=== PATIENT | female | born 1945 | race Caucasian/White ===

== ENCOUNTER → 2016-11-20 | Outpatient (CLI) | payer OTHER ==
[~2016-11-20] MED LIST: AMOX875T PO; ATOR-24 PO; HYDR12.56 PO; LEVO175T PO; LOSA1TAB38 PO; OXYC1TAB3 PO; PHN/100 PO
--- NOTE | 2016-11-20 13:52 | MAMMOGRAPHY REPORT ---
BILATERAL DIGITAL SCREENING MAMMOGRAM WITH CAD: 11/20/2016 CLINICAL HISTORY: Routine screening. Patient has no complaints. TECHNIQUE: Current study was also evaluated with a Computer Aided Detection (CAD) system. Bilatera l CC and MLO views were obtained. COMPARISON: Comparison is made to exams dated: 10/08/2015 mammogram, 06/29/2014 mammogram, 06/28/2013 mammogram, 06/27/2012 mammogram, 06/29/2011 mammogram, and 06/12/2010 mammogram - [facility]. BREAST COMPOSITION: There are scattered areas of fibroglandular density in both breasts. FINDINGS: No suspicious masses, calcifications, or areas of architectural distortion are noted in e ither breast. There has been no significant interval change compared to prior exams. Scattered bilat eral benign-appearing calcifications are not significantly changed. IMPRESSION: ACR BI-RADS CATEGORY 2: BENIGN There is no mammographic evidence of malignancy. A 1 year screening mammogram is recommended. The p atient will receive written notification of the results. Approximately 10% of breast cancers are not detected with mammography. A negative mammographic repor t should not delay biopsy if a clinically suggestive mass is present. Bridgett Mcadams M.D. /:11/20/2016 12:26:43 Admission Specialist: Mecca VAZQUEZ)(M), [facility] letter sent: Normal 1/2 BI-RADS Code: ACR BI-RADS Category 2: Benign
== END | disposition home or self-care (01) ==
LOC: C.MAMM 09:35
PROVIDERS: ATTEND Obstetrics & Gynecology
DX: Z12.31 Encounter for screening mammogram for malignant neoplasm of breast (principal)

== ENCOUNTER → 2017-01-29 | Outpatient (CLI) | payer OTHER | END | disposition home or self-care (01) | LOC: C.PAPS 13:40 | PROVIDERS: ATTEND Obstetrics & Gynecology | DX: Z12.4 Encounter for screening for malignant neoplasm of cervix (principal) ==

== ENCOUNTER 2017-06-14 09:05 | Emergency (ER) | payer OTHER ==
[~2017-06-14] VITALS: Ht 157.5 cm; Wt 60.9 kg
[2017-06-14 09:06] VITALS: TEMP 36.6; Ht 157.5 cm; Wt 60.9 kg
[2017-06-14] MEDS ORDERED: DIPHTHERIA/TETANUS/PERTUSSIS 0.5 ML SYR/VIAL IM. ONE (09:15)
--- NOTE | 2017-06-14 09:20 | EMERGENCY ROOM VISIT NOTE ---
History Report prepared by Alejandro: Sailaja Narayan Under the Supervision of: Dr. Sourav Smith M.D. First contact with patient: 09:10 Chief Complaint: FALL Stated Complaint: FELL POSSBILE BROKE NOSE History of Present Illness The patient is a 71 year old female who presents to the Emergency Room with complaints of a sudden fall that occurred this morning prior to arrival. She currently rates her discomfort as a 2/10 in severity. The patient states that this morning she was walking out to get her paper and tripped over her sandals. She denies any lightheadedness, chest pain, or shortness of breath prior to the fall. The patient states that she hit her face during the fall, noting nasal pain. She states that her nose bled for a long amount of time. The patient denies being on any blood thinners or aspirin. She denies any alcohol use this morning. The patient reports dental pain as well. She denies any neck pain, jaw pain, or extremity pain. The patient is unsure of her tetanus status. Source of History: patient Onset: this morning prior to arrival Position: other (global) Symptom Intensity: 2/10 Quality: other (fall) Timing: other (sudden) Associated Symptoms: No neck pain, No chest pain, No SOB Note: Associated symptoms: dental pain, nasal pain Review of Systems See HPI for pertinent positives & negatives. A total of 10 systems reviewed and were otherwise negative. Past Medical & Surgical Medical Problems: (1) Hypertension Family History FHx: heart disease Seizures Social History Smoking Status: Never Smoker Smokeless Tobacco Use: No Alcohol Use: none Housing Status: lives alone Occupation Status: retired Current/Historical Medications Scheduled Amoxicillin & Pot Clavulanate (Augmentin 875-125 mg), 875 MG PO BID Atorvastatin (Lipitor), 40 MG PO DAILY Hydrochlorothiazide (Hctz), 12.5 MG PO DAILY Levothyroxine Sodium (Synthroid), 175 MCG PO DAILY Losartan Potassium (Cozaar), 100 MG PO DAILY Phenytoin Sodium (Dilantin), 300 MG PO DAILY Scheduled PRN Oxycodone Immediate Rel Tab (Roxicodone Ir), 1-2 TAB PO Q4H PRN for Severe Pain Allergies Coded Allergies: No Known Allergies (Verified , 06/14/17) Physical Exam Vital Signs Date Time Temp Pulse Resp B/P (MAP) Pulse Ox O2 Delivery O2 Flow Rate FiO2 06/14/17 11:27 74 16 148/88 98 06/14/17 09:06 36.6 85 16 137/77 97 Room Air Physical Exam GENERAL: Patient is well appearing and in no acute distress. HEENT: 1.55 cm lac over inner portion of lip .5 cm across outer portion of lip. Abrasion over tip of nose, swelling ecchymosis and tend over bridge of nose with mild flattening. Clot in left naris, no obvious septal hematoma appreciated, mucous membranes are moist, no scleral icterus. NECK: No stridor, no adenopathy, no meningismus, trachea is midline. LUNGS: No dyspnea. Clear to auscultation and equal bilaterally. No wheeze, no rhonchi. HEART: Regular rate and rhythm. No murmurs, rubs, gallops appreciated. EXTREMITIES: Normal motion all extremities, no cyanosis, no edema. NEUROLOGIC: Alert and oriented, no acute motor or sensory deficits, no focal weakness, cranial nerves grossly intact. SKIN: No rash, no jaundice, no diaphoresis. Medical Decision & Procedures ER Provider Diagnostic Interpretation: Radiology results and stated below per my review and radiologist interpretation: FACIAL BONES-MXILLOFAC WITHOUT CLINICAL HISTORY: 71 years-old Female presenting with fall, facial injury. Acute facial injury status post fall. Initial exam. COMPARISON STUDY: CT head of same day TECHNIQUE: High-resolution CT scan of the facial bones is performed. Images are reviewed in the axial, sagittal, and coronal planes. IV contrast was not administered for this examination. A dose lowering technique was utilized adhering to the principles of ALARA. FINDINGS: Acute minimally displaced bilateral paramedian nasal bone fractures are present with additional multiple fractures noted involving the bony nasal septum with mild displacement and angulation of a few millimeters. Moderate hemorrhage is seen within the nasal turbinates. The vomer appears intact. The bony orbits are intact and the orbital contents are within normal limits. The zygomatic arches, and pterygoid plates are preserved. The maxilla and mandible are intact. Moderate degenerative changes involve the right temporomandibular joint. There is mild hemorrhage layering within the left maxillary sinus. The imaged calvarium and upper cervical spine are within normal limits. Partially imaged brain parenchyma is within normal limits. Degenerative changes about the upper cervical spine are noted. No acute cervical spine fracture is identified. There is moderate soft tissue swelling about the nasal bone fracture. There is atherosclerotic plaquing of the carotid bulbs. IMPRESSION: Acute mildly displaced paramedian nasal bone fractures with multiple mildly displaced and angulated bony nasal septal fractures. Associated layering hemorrhage is present within the nasal turbinates and left maxillary sinus. Moderate associated soft tissue swelling. The above report was generated using voice recognition software. It may contain grammatical, syntax or spelling errors. Electronically signed by: Oswaldo Monge M.D. 06/14/2017 9:47 AM Dictated Date/Time: 06/14/2017 9:39 AM HEAD WITHOUT CONTRAST (CT) CLINICAL HISTORY: 71 years-old Female with fall, head injury. Acute head injury status post fall. Initial exam. TECHNIQUE: Multiple axial CT images of the head were obtained without contrast. A dose lowering technique was utilized adhering to the principles of ALARA. CT DOSE: 756.85 mGy.cm COMPARISON: CT maxillofacial study of same day. FINDINGS: No acute intracranial hemorrhage, midline shift, mass, large territorial ischemia or abnormal extra-axial collection. There is mild cerebral and cerebellar atrophy. Senescent lentiform nuclear calcifications are present. Ill-defined areas of low-attenuation within the periventricular white matter compatible with chronic microvascular ischemic changes. Vascular calcifications are seen at the level of the skull base. The calvarium is intact. The paranasal sinuses, mastoid air cells, and middle ear cavities are clear. IMPRESSION: 1. No acute intracranial abnormality. 2. Mild atrophy with chronic microvascular ischemic changes. The above report was generated using voice recognition software. It may contain grammatical, syntax or spelling errors. Electronically signed by: Oswaldo Monge M.D. 06/14/2017 9:39 AM Dictated Date/Time: 06/14/2017 9:34 AM Medications Administered Medications (Trade) Dose Ordered Sig/Nasreen Route Start Time Stop Time Status Last Admin Dose Admin Diphtheria/ Pertussis/Tetanus Vacc (Adacel Inj) 0.5 ml ONCE ONCE IM. 06/14/17 09:15 06/14/17 09:16 DC 06/14/17 09:20 0.5 ML Amoxicillin/ Clavulanate Potassium (Augmentin Tab) 875 mg ONE ONCE PO 06/14/17 11:00 06/14/17 11:01 DC 06/14/17 11:15 875 MG Oxycodone HCl (Roxicodone Immediate Rel 5MG Home Pack) 1 homepack UD ONCE PO 06/14/17 11:00 06/14/17 11:01 DC 06/14/17 11:15 1 HOMEPACK ED Course 0911: The patient was evaluated in room A11B. A complete history and physical exam was performed. 0915: Ordered Adacel Inj 0.5 ml IM. 30: Ordered Lidocaine HCl 20 ml INFIL. 0948: I removed the clot in the left and right naris with suction. She has a deviated medial septum to the left which is causing closure to the left naris. 1002: I discussed the patients case with Dr. Balderas, ENT. He states that he would like to see the patient within the next 3-5 days. He states that the patient will likely need a revision. 1040: The laceration repair was performed by Opal Mallory PA-C. See her note for further detail. 1059: I reevaluated the patient and she is resting comfortably. I discussed the exam findings with her and I discussed the treatment plan. She verbalized complete understanding and agreement. She is ready to go home. 1100: Ordered oxycodone HCl 1 homepack PO, Augmentin Tab 875 mg PO. Medical Decision Differential diagnosis incudes: ICH, skull fracture, facial fracture, tetanus status, non-mechanical cause of fall 71 yr old very pleasant female with trip and fall this morning which she makes quite clear was mechanical. Clear trauma to lip and nose though otherwise looks good. Given age and facial trauma felt CT head indicated which was normal , though with no neck pain/TTP nor neuro deficits no indication for imaging of neck. Face CT with complex septal fracture and nasal bridge. Left nares is occluded due to deformity of septum though no clear evidence of hematoma. I reviewed this with [facility] and plan will be for her to follow up with them as outpatient. Lip lac repaired by Opal Mallory PAC with excellent result. As nasal fracture along with through-through lip lac will start on Augmentin. Pain meds reviewed with patient and understands risks, she notes unlikely to use. Stable, feels well and wishes discharge. Understands plan. Medication Reconcilliation Current Medication List: was personally reviewed by me Blood Pressure Screening Patient's blood pressure: Normal blood pressure Blood pressure disposition: Did not require urgent referral Consults Time Called: 0933 Consulting Physician: Dr. Balderas, ENT Returned Call: 1002 I discussed the patients case with Dr. Balderas, ENT. He states that he would like to see the patient within the next 3-5 days. He states that the patient will likely need a revision. Impression Primary Impression: Fall Additional Impressions: Fracture of nasal septum Laceration of lower lip Scribe Attestation The scribe's documentation has been prepared under my direction and personally reviewed by me in its entirety. I confirm that the note above accurately reflects all work, treatment, procedures, and medical decision making performed by me. Departure Information Dispostion Home / Self-Care Prescriptions Oxycodone Immediate Rel Tab (ROXICODONE IR) 5 Mg Tab 1-2 TAB PO Q4H Y for Severe Pain, #12 TAB Prov: Sourav Smith M.D. 06/14/17 Amoxicillin & Pot Clavulanate (Augmentin 875-125 mg) 1 Tab Tab 875 MG PO BID for 7 Days, #14 TAB Prov: Sourav Smith M.D. 06/14/17 Referrals Bean Reed MD Forms HOME CARE DOCUMENTATION FORM, IMPORTANT VISIT INFORMATION Patient Instructions ED Fx Nasal Conf W X Ray, [facility], [facility] Additional Instructions Sutures will dissolve on their own. Return if increased swelling, pain, fevers, redness, drainage or other concerns. Follow up with ENT this week. Call office tomorrow to schedule an appointment. DO NOT BLOW YOUR NOSE. Problem Qualifiers
[2017-06-14] MEDS ORDERED: XYLOCAINE 1%/SOD BICARB 20 ML VIAL INFIL ONE (09:30)
--- NOTE | 2017-06-14 09:40 | DIAGNOSTIC IMAGING REPORT ---
HEAD WITHOUT CONTRAST (CT) CLINICAL HISTORY: 71 years-old Female with fall, head injury. Acute head injury status post fall. Initial exam. TECHNIQUE: Multiple axial CT images of the head were obtained without contrast. A dose lowering technique was utilized adhering to the principles of ALARA. CT DOSE: 756.85 mGy.cm COMPARISON: CT maxillofacial study of same day. FINDINGS: No acute intracranial hemorrhage, midline shift, mass, large territorial ischemia or abnormal extra-axial collection. There is mild cerebral and cerebellar atrophy. Senescent lentiform nuclear calcifications are present. Ill-defined areas of low-attenuation within the periventricular white matter compatible with chronic microvascular ischemic changes. Vascular calcifications are seen at the level of the skull base. The calvarium is intact. The paranasal sinuses, mastoid air cells, and middle ear cavities are clear. IMPRESSION: 1. No acute intracranial abnormality. 2. Mild atrophy with chronic microvascular ischemic changes. The above report was generated using voice recognition software. It may contain grammatical, syntax or spelling errors. Electronically signed by: Oswaldo Monge M.D. 06/14/2017 9:39 AM Dictated Date/Time: 06/14/2017 9:34 AM
[2017-06-14] MEDS ORDERED: HYDR12.56 PO (09:45)
[2017-06-14] MEDS ORDERED: LOSA1TAB38 PO (09:45)
[2017-06-14] MEDS ORDERED: ATOR-24 PO (09:45)
[2017-06-14] MEDS ORDERED: LEVO175T PO (09:45)
[2017-06-14] MEDS ORDERED: PHN/100 PO (09:45)
--- NOTE | 2017-06-14 09:48 | DIAGNOSTIC IMAGING REPORT ---
FACIAL BONES-MXILLOFAC WITHOUT CLINICAL HISTORY: 71 years-old Female presenting with fall, facial injury. Acute facial injury status post fall. Initial exam. COMPARISON STUDY: CT head of same day TECHNIQUE: High-resolution CT scan of the facial bones is performed. Images are reviewed in the axial, sagittal, and coronal planes. IV contrast was not administered for this examination. A dose lowering technique was utilized adhering to the principles of ALARA. FINDINGS: Acute minimally displaced bilateral paramedian nasal bone fractures are present with additional multiple fractures noted involving the bony nasal septum with mild displacement and angulation of a few millimeters. Moderate hemorrhage is seen within the nasal turbinates. The vomer appears intact. The bony orbits are intact and the orbital contents are within normal limits. The zygomatic arches, and pterygoid plates are preserved. The maxilla and mandible are intact. Moderate degenerative changes involve the right temporomandibular joint. There is mild hemorrhage layering within the left maxillary sinus. The imaged calvarium and upper cervical spine are within normal limits. Partially imaged brain parenchyma is within normal limits. Degenerative changes about the upper cervical spine are noted. No acute cervical spine fracture is identified. There is moderate soft tissue swelling about the nasal bone fracture. There is atherosclerotic plaquing of the carotid bulbs. IMPRESSION: Acute mildly displaced paramedian nasal bone fractures with multiple mildly displaced and angulated bony nasal septal fractures. Associated layering hemorrhage is present within the nasal turbinates and left maxillary sinus. Moderate associated soft tissue swelling. The above report was generated using voice recognition software. It may contain grammatical, syntax or spelling errors. Electronically signed by: Oswaldo Monge M.D. 06/14/2017 9:47 AM Dictated Date/Time: 06/14/2017 9:39 AM
[2017-06-14] MEDS ORDERED: OXYC1TAB3 PO (10:56)
[2017-06-14] MEDS ORDERED: AMOX875T PO (10:56)
[2017-06-14] MEDS ORDERED: AMOXICILLIN/CLAVULANATE TAB 875 MG TAB PO ONE (11:00)
[2017-06-14] MEDS ORDERED: OXYCODONE IR HOME PACK PO ONE (11:00)
[2017-06-14 11:27] VITALS: BP 148/88; PULSE 74; O2SAT 98
--- NOTE | 2017-06-14 12:08 | EMERGENCY ROOM VISIT NOTE ---
ED Visit Note I was asked to perform laceration repair of this patient's lower lip laceration. Exam reveals a gaping 1.5 cm laceration to the inside of the lower lip with no active bleeding. There is an additional 0.5 cm laceration to the outer lip which does not gape apart. Verbal consent was obtained to perform the procedure. 2 ml of 1% buffered lidocaine was used to anesthetize the inner lip laceration. Once the patient was anesthetized, the wound was copiously irrigated under pressure with sterile saline. The laceration was repaired using 3 simple interrupted 5-0 Vicryl sutures with the wound edges being well approximated. Dermabond was applied to the outer laceration with good closure. The patient tolerated the procedure well. Hemostasis was achieved.
== END 2017-06-14 11:28 | disposition home or self-care (01) ==
LOC: C.EDB 09:06 → C.EDA 11:28
DX: S02.2XXA Fracture of nasal bones, initial encounter for closed fracture (principal); S01.511A Laceration without foreign body of lip, initial encounter; W18.09XA Striking against other object with subsequent fall, initial encounter; Y93.01 Activity, walking, marching and hiking; Y99.8 Other external cause status; I10 Essential (primary) hypertension; Z82.0 Family history of epilepsy and other diseases of the nervous system; Z79.899 Other long term (current) drug therapy; Z23 Encounter for immunization; J34.2 Deviated nasal septum

== ENCOUNTER → 2017-07-16 | Outpatient (CLI) | payer OTHER ==
[~2017-07-16] MED LIST changes: -AMOX875T PO
[2017-07-16 10:31] LABS: BASO % 0.3 %; BASO ABS # 0.01 K/uL (0-0.2); COMPLETE YES; EOS % 3.6 %; HEMATOCRIT 40.7 % (37-47); IG% 0.3 %; LYMPH % 24.2 %; LYMPH ABS # 0.73 K/uL (1.2-3.4); MEAN CELL VOLUME 90.2 fL (80-100); MEAN CORPUSCULAR HGB CONC 34.4 g/dl (32-36); MEAN PLATELET VOLUME 9.6 fL (7.4-10.4); MONO % 9.6 %; PLATELET COUNT 128 K/uL (130-400); RED BLOOD COUNT 4.51 M/uL (4.2-5.4); WHITE BLOOD COUNT 3.02 K/uL (4.8-10.8)
[2017-07-16 10:44] LABS: ALT/SGPT 24 U/L (12-78); BLOOD UREA NITROGEN 13 mg/dl (7-18); BUN/CREATININE RATIO 20.3 (10-20); CALCIUM 8.6 mg/dl (8.5-10.1); CARBON DIOXIDE 32 mmol/L (21-32); CHLORIDE 104 mmol/L (98-107); CHOLESTEROL 264 mg/dl (0-200); CREATININE 0.66 mg/dl (0.60-1.20); GLUCOSE 95 mg/dl (70-99); POTASSIUM 3.9 mmol/L (3.5-5.1); SODIUM 140 mmol/L (136-145)
[2017-07-16 10:55] LABS: ALB/GLOB RATIO 1.2 (0.9-2); ALKALINE PHOSPHATASE 119 U/L (45-117); AST/SGOT 38 U/L (15-37); CHOLESTEROL/HDL RATIO 2.3; HDL CHOLESTEROL 117 mg/dl; LDL CHOLESTEROL CALCULATED 132 mg/dl; TRIGLYCERIDES 75 mg/dl (0-150); VERY LOW DENSITY LIPOPROT CALC 15 mg/dl
== END | disposition home or self-care (01) ==
LOC: C.LAB1850 09:02
PROVIDERS: ATTEND Internal Medicine
DX: E55.9 Vitamin D deficiency, unspecified (principal); E03.9 Hypothyroidism, unspecified

== ENCOUNTER → 2017-08-16 | Outpatient (CLI) | payer OTHER | END | disposition home or self-care (01) | LOC: C.MAMM 09:51 | PROVIDERS: ATTEND Internal Medicine | DX: M85.89 Other specified disorders of bone density and structure, multiple sites (principal); M85.851 Other specified disorders of bone density and structure, right thigh; M85.852 Other specified disorders of bone density and structure, left thigh ==

== ENCOUNTER → 2017-11-23 | Outpatient (CLI) | payer OTHER ==
--- NOTE | 2017-11-24 15:22 | MAMMOGRAPHY REPORT ---
BILATERAL DIGITAL SCREENING MAMMOGRAM TOMOSYNTHESIS WITH CAD: 11/23/2017 CLINICAL HISTORY: Routine screening. Patient has no complaints. TECHNIQUE: Breast tomosynthesis in addition to standard 2D mammography was performed. Current study was also evaluated with a Computer Aided Detection (CAD) system. COMPARISON: Comparison is made to exams dated: 11/20/2016 mammogram, 10/08/2015 mammogram, 06/29/2014 mammogram, 06/28/2013 mammogram, 06/27/2012 mammogram, and 06/29/2011 mammogram - [facility]. BREAST COMPOSITION: There are scattered areas of fibroglandular density in both breasts. FINDINGS: There are diffuse bilateral benign-appearing rodlike secretory calcifications throughout th e breasts, and mild vascular calcification bilaterally. No suspicious mass, architectural distortion or cluster of suspicious microcalcifications is seen. IMPRESSION: ACR BI-RADS CATEGORY 1: NEGATIVE There is no mammographic evidence of malignancy. A 1 year screening mammogram is recommended. The pa tient will receive written notification of the results. Approximately 10% of breast cancers are not detected with mammography. A negative mammographic report should not delay biopsy if a clinically suggestive mass is present. Mago Kendall M.D. ay/:11/23/2017 16:59:49 Material Chaser: Mecca LUNA(Leon)(M), [facility] letter sent: Normal 1/2 BI-RADS Code: ACR BI-RADS Category 1: Negative
== END | disposition home or self-care (01) ==
LOC: C.MAMM 09:17
PROVIDERS: ATTEND Obstetrics & Gynecology
DX: Z12.31 Encounter for screening mammogram for malignant neoplasm of breast (principal)